=== PATIENT | female | born 1940 | race Caucasian/White ===

== ENCOUNTER 2016-11-14 19:56 | Emergency (ER) | payer MEDICARE, OTHER | END 2016-11-14 22:20 | disposition home or self-care (01) | LOC: ER1 19:56 → EDBD 19:56 → ER1 22:20 | DX: M50.33 Other cervical disc degeneration, cervicothoracic region (principal); F17.200 Nicotine dependence, unspecified, uncomplicated; E03.9 Hypothyroidism, unspecified; K21.9 Gastro-esophageal reflux disease without esophagitis; Z79.82 Long term (current) use of aspirin; Z79.899 Other long term (current) drug therapy | CPT/HCPCS: 71250; 72125; 99283 ==